=== PATIENT | female | born 1955 | race Caucasian/White ===

== ENCOUNTER 2020-07-28 10:47 | Inpatient (IN) | payer OTHER ==
[~2020-07-28] VITALS: Ht 160 cm; Wt 84.8 kg
[2020-07-28 10:50] VITALS: BP 153/73
--- NOTE | 2020-07-28 11:21 | NUR ---
REVIEWED TRIAGE NOTE. PT IS A POOR HISTORIAN THEREFORE HARD FOR THIS RN TO OBTAIN MUCH PMH. PT UNSURE OF HOW LONG HER SPINAL CORD STIMULATOR HAS BEEN IN PLACE. PT STATES SHE THINKS PAIN GOT WORSE YESTERDAY. PT NOTES PAIN TO LUMBAR REGION WORSE ON RIGHT SIDE. PT DENIES NUMBNESS OR TINGLING. PT DOES NOTE SOMETIMES THE PAIN GOES INTO HER BUTTOCK AND DOWN HER LEGS. PT DENIES LOSS OF BOWEL OR BLADDER CONTROL. PT DENIES FEVER. PT STATES SHE HAS FELT SOME "DRAINAGE" THIS RN NOTED TWO SCARS ON LUMABR REGION THAT ARE WNL AND HEALED WELL. NO DRAINAGE NOTED. PT BACK TO ED11 VIA WHEELCHAIR PT NEEDING ASSIST TO GET UP AND GET INTO BED. PT STATES SHE DOES NOT NORMALLY USE ANY ASSISTIVE DEVICES. PT HAS NOTED WEAKNESS TO BLE BUT LEFT APPEARS WORSE THAN RIGHT ALTHOUGH PAIN IS WORSE ON THE RIGHT SIDE. PT SENSATION AND PULSES ARE INTACT AND WNL. PT SKIN PWD, VSS ON RA, PT SKIN PWD, PT IS A&OX4, GCS 15, CALL LIGHT WITHIN REACH AND ENCOURAGED TO USE
[2020-07-28 11:26] LABS: ABSOLUTE NEUTROPHILS 15.6 thou/uL (1.4-8.2); BASOPHILS 0.5 % (0.0-2.0); HEMATOCRIT 35.4 % (37.0-47.0); HEMOGLOBIN 11.9 gm/dL (12.0-15.0); LYMPHOCYTES 9.1 % (24.0-44.0); MCH 27.5 pg (26.0-34.0); MCHC 33.8 g/dL (28.0-37.0); MCV 81.4 fL (80.0-100.0); MONOCYTES 7.3 % (1.0-8.0); PLATELET COUNT 404 thou/uL (150-400); POLYS 83.1 % (36.0-66.0); RBC 4.34 mil/uL (4.20-5.00); RDW 15.2 % (10.5-14.5); WBC 18.7 thou/uL (4.0-11.0)
[2020-07-28 11:37] LABS: CALCIUM 9.1 mg/dL (8.5-10.1); POTASSIUM 3.6 mmol/L (3.5-5.1)
[2020-07-28 11:43] LABS: ALBUMIN 3.5 g/dL (3.4-5.0); TOTAL BILIRUBIN 0.7 mg/dL (0.2-1.0); TOTAL PROTEIN 8.3 g/dL (6.4-8.2)
--- NOTE | 2020-07-28 12:26 | NUR ---
PT GOING FOR MRI AT THIS TIME WITH DIRECTOR [employer], PT STABLE FOR TRANSPORT, PT REMAINS AT BASELINE
--- NOTE | 2020-07-28 12:56 | NUR ---
PT SISTER AND BROTHER IN-[place] CONTACT INFORMATION ERICA BRADY [phone] SISTER [phone]
[2020-07-28 14:12] LABS: URINE BILIRUBIN NEGATIVE (Negative); URINE BLOOD TRACE (Negative); URINE CLARITY CLEAR; URINE COLOR YELLOW; URINE GLUCOSE-RANDOM* NEGATIVE (Negative); URINE KETONES NEGATIVE (Negative); URINE LEUKOCYTES-REFLEX NEGATIVE (Negative); URINE NITRITE-REFLEX NEGATIVE (Negative); URINE PROTEIN (DIPSTICK) TRACE (Negative); URINE SPECIFIC GRAVITY 1.015 (1.005-1.035)
[2020-07-28 15:30] VITALS: BP 115/72
--- NOTE | 2020-07-28 19:11 | NUR ---
PATIENT ADMITED UNIT FROM OR AT 1805. A/O X4. DROWSY BUT AROUSBLE. TEMP 101.1 WILL KEEP MONITOR.
[2020-07-28 20:55] VITALS: BP 184/110
[2020-07-29] VITALS (7 sets, daily range): BP systolic 143–188; BP diastolic 93–110
[2020-07-29 04:19] LABS: HEMATOCRIT 31.6 % (37.0-47.0); HEMOGLOBIN 10.3 gm/dL (12.0-15.0); MCH 26.9 pg (26.0-34.0); MCHC 32.8 g/dL (28.0-37.0); MCV 82.3 fL (80.0-100.0); RBC 3.84 mil/uL (4.20-5.00); RDW 15.4 % (10.5-14.5); WBC 20.1 thou/uL (4.0-11.0)
[2020-07-29 04:28] LABS: PLATELET COUNT 317 thou/uL (150-400)
[2020-07-29 04:49] LABS: ALBUMIN 2.6 g/dL (3.4-5.0); CALCIUM 8.3 mg/dL (8.5-10.1); CREATININE 0.8 mg/dL (0.6-1.0); MAGNESIUM 1.5 mg/dL (1.8-2.4); POTASSIUM 3.3 mmol/L (3.5-5.1); TOTAL BILIRUBIN 0.8 mg/dL (0.2-1.0); TOTAL PROTEIN 6.7 g/dL (6.4-8.2)
[2020-07-29 05:58] LABS: ABSOLUTE NEUTROPHILS 18.3 thou/uL (1.4-8.2)
--- NOTE | 2020-07-29 06:00 | NUR ---
Patient making slow progress towards outcome goals. Afebrile. Bloos cultures growing grampositived cocci, reported to . Patient on already has Vancomycin and Zosyn ordered. More alert, calls out appropriately for bed christiansen needs. Complaining of headache, relieved with Tylenol. Rhythm Sinus.
--- NOTE | 2020-07-29 14:59 | HC ---
[facility] [place] [address] CONSULTATION Name: ERICK ACOSTA Room #: 355- ADM IN M.R.#: [id number] Admission: 07/28/20 Attend Phys: Andre Gilmore MD Discharge: Date of : 55 Report #: [id number] THIS REPORT FOR: cc: FAM - Family physician unknown FAM - Family physician unknown Kwame Sullivan MD ~ DOC #: [id number] Kwame Sullivan MD DATE OF SERVICE: 07/28/2020 INFECTIOUS DISEASE CONSULTATION REASON FOR CONSULTATION: I am asked to evaluate concerning spinal stimulator infection. HISTORY OF PRESENT ILLNESS: The patient is a 65-year-old with degenerative arthritis and chronic back pain. Approximately 1 month ago on 06/30/2020, she had a spinal stimulator placed by Dr. Wenceslao Huber. She reported some relief of her back pain with radicular features into both buttock regions. Over the last 3 days, she has had increased pain. No definite fever, chills or sweats. Pain, she states, is uncontrollable, unable to sleep, much worse when she lies on her back. She has had minimal drainage from her back incision. She has had some redness to the region. No change in bowel or bladder habits. REVIEW OF SYSTEMS: She has had no cardiopulmonary, GI or issues. She has had no weakness in her lower extremities. Main issue is just pain with movement. ALLERGIES: CEPHALEXIN, SULFA, TYLENOL, BACLOFEN, CODEINE, CYCLOBENZAPRINE, DULOXETINE, HYDROCODONE, DEMEROL, MEDROL, PREGABALIN, PROPOXYPHENE, VIOXX. MEDICATIONS: As noted on her MAR, with no antibiotics prior to coming into the hospital. Subsequently, she has been placed on vancomycin and Zosyn. PAST MEDICAL HISTORY: Degenerative arthritis, chronic back pain. FAMILY HISTORY: No report of tuberculosis. SOCIAL HISTORY: Lives with her . No report of tobacco or alcohol use. PHYSICAL EXAMINATION: VITAL SIGNS: Currently afebrile and hemodynamically stable. GENERAL: She was alert and cooperative. She was in significant amount of discomfort when she tried to move in bed. SKIN: Without rash or decubitus except for what will be described on her back examination. No palpable adenopathy. [address] [address] CONSULTATION Name: ERICK ACOSTA Room #: 355-P [facility] IN M.R.#: [id number] Admission: 07/28/20 Attend Phys: Andre Gilmore MD Discharge: Date of : 55 Report #: [id number] HEENT: Eyes without scleral icterus. Mouth without mucositis. NECK: Supple. LUNGS: Clear to auscultation. HEART: Regular, without murmur, gallop or rub. ABDOMEN: Mildly distended, had some tenderness in the lower abdomen without mass or hepatosplenomegaly. She had positive bowel sounds. GENITAL AND RECTAL: Examination not performed. BACK: With a right flank incision unremarkable with no erythema or drainage and the pocket was without fluid. Her back incision had erythema from the upper portion of the incision and a small amount of dehiscence superficially of the incision, most cephalad. There is no definite fluctuance or drainage able to be expressed. NEUROLOGIC: Strength in her lower extremities along with sensation to touch and deep tendon reflexes were within normal limits bilaterally. PSYCHIATRIC: Mood was without anxiety or depression. LABORATORY DATA: Reviewed with a hemoglobin of 11.9, WBC 18.7. ESR 53, CRP 115, creatinine 1. Liver function test normal. Chest x-ray clear. Urinalysis is unremarkable. MRI scan showed evidence of a L1 through L4 stenosis and at T3 through C7 syrinx. No abscess was evident. Discussed with Dr. Huber postoperatively where the prosthesis has been removed. There was no definite abscess seen. Cultures were obtained. IMPRESSION: 1. Suspected lumbar spine stimulator surgical site infection. Await cultures. 2. Chronic pain, low back 3. Degenerative arthritis. RECOMMENDATIONS: We will continue broad antibiotic coverage pending culture results. Follow serial laboratory studies including CBC and her inflammatory markers. We will also follow her abdominal examination. Case was discussed with nursing staff at the bedside, operative staff and Dr. Huber. Kwame Sullivan MD DJG/WAZ <ELECTRONICALLY SIGNED> By: Kwame Sullivan MD 07/29/20 1459 [id number] Kwame Sullivan MD /nt
[2020-07-29 18:22] LABS: CALCIUM 9.3 mg/dL (8.5-10.1); CREATININE 0.9 mg/dL (0.6-1.0)
[2020-07-29 18:23] LABS: POTASSIUM 4.1 mmol/L (3.5-5.1)
--- NOTE | 2020-07-29 19:07 | NUR ---
ASSUMED PATIENT CARE AT 0700. A/O X4. PATIENT TURN TO LETHARGIC AFTER 2PM. BUT AROUSBLE. WILL HAVE CT HEAD. UP TO BATHROOM WITH WALKER. VSS. RA 97%. WILL KEEP MONITOR.
--- NOTE | 2020-07-29 21:55 | NUR ---
PT ALERT AND ORIENTED 2. MILDLY CONFUSED. FOLLOWS COMMANDS. PT IS LETHARGIC. SHE DOES AWAKEN EASILY.TO TAQKE MEDS OR TAKE DRINKS ETC. NOTIFIED PYROTECHNICS PRESS TENDER PRIOR TO CT SCAN OF PT'S BP. ELEVATED. STARTED LISINOPRIL ORDERED. MORPHINE GIVEN FOR C/O CASTANON. CT SCAN DONE OF HEAD. PT STILL C/O CASTANON. PT REPOSITIONED IN BED. NO S/S BLEEDING NOTED AT INCISIONAL SITE ON BACK. BED DOWN CALL LIGHT IN REACH. BED ALARM IS ON.
[2020-07-29] MEDS ORDERED: DILTIAZEM 24HR120 M1 PO (22:57)
[2020-07-29] MEDS ORDERED: ACYCLOVIR 400400 MG PO (22:57)
[2020-07-29] MEDS ORDERED: LISINOPRIL2.5 MG PO (22:58)
[2020-07-29] MEDS ORDERED: ROSUVASTATIN CA10 MG PO (22:58)
[2020-07-29] MEDS ORDERED: METFORMIN HCL500 M1 PO (23:00)
[2020-07-29] MEDS ORDERED: TRAMADOL 50 MG50 MG PO (23:55)
[2020-07-30] MEDS ORDERED: MELOXICAM15 MG PO
[2020-07-30] MEDS ORDERED: SINGULAIR 10 MG10 MG PO (00:16)
[2020-07-30] MEDS ORDERED: PAROXETINE HCL40 MG PO (00:38)
[2020-07-30] MEDS ORDERED: PROTONIX40 M2 PO (00:41)
[2020-07-30 00:58] VITALS: BP 153/99
[2020-07-30 02:53] VITALS: BP 107/66
--- NOTE | 2020-07-30 04:14 | NUR ---
PT ALERT AND ORIENTED X4 THIS AM. OPENS EYES SPONTANEOUSLY. MORE ALERT THIS AM. LESS LETHARGIC AND SLEEPY. AWAKENS EASILY.8.8 THIS AM. BP BETTER SR WITH PACS ON MONITOR IN 70-80S. 97% ON 4LNC. DENIED CASTANON OR BACK PAIN THIS AM. DRESSING TO BACK REMAINS CLEAN DRY AND IBNTACT. NO S/S DISTRESS.
[2020-07-30 05:41] LABS: ABSOLUTE NEUTROPHILS 10.3 thou/uL (1.4-8.2); BASOPHILS 0.6 % (0.0-2.0); EOSINOPHILS 0.1 % (0.0-3.0); HEMOGLOBIN 10.7 gm/dL (12.0-15.0); MCH 27.2 pg (26.0-34.0); MCHC 32.5 g/dL (28.0-37.0); MCV 83.6 fL (80.0-100.0); MONOCYTES 9.2 % (1.0-8.0); PLATELET COUNT 297 thou/uL (150-400); POLYS 77.1 % (36.0-66.0); RBC 3.95 mil/uL (4.20-5.00); WBC 13.4 thou/uL (4.0-11.0)
[2020-07-30 07:14] VITALS: BP 116/75
[2020-07-30 11:12] VITALS: BP 159/89
--- NOTE | 2020-07-30 14:55 | EKG ---
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
[2020-07-30 14:58] VITALS: BP 136/86
[2020-07-30 19:16] VITALS: BP 110/74
--- NOTE | 2020-07-30 22:44 | NUR ---
PT PROGRESSING TOWARDS D/C GOALS. AWAKE AND ALERT X4. PERRLA. VSS. C/O CASTANON PAIN. MEDICATED WITH 4 MG MORPHINE IV. DRESSING TO BACK REMAINS CLEAN DRY AND INTACT.PT RESTING QUIETLY PRESENTLY. NO S/S DISTRESS. BED DOWN . CALL LIGHT IN REACH. BED ALARM IS ON. MIRALAX AND STOOL SOFTENER GIVEN TO ASSIST WITH BM. WILL CONTINUE TO MONITOR PT FOR CHANGES.
[2020-07-31 03:37] VITALS: BP 117/78
--- NOTE | 2020-07-31 05:15 | NUR ---
PT PROGRESSING TOWARDS D/C GOALS. VSS AFEBRILE THIS AM. UNLABORED ON 2LNC.C/O CASTANON MEDICATED WITH TORADOL THIS AM PT VOIDING CLEAR YELLOW URINE PER BEDPAN OR BATHROOM. NO BLEEDING NOTED AT SURGICAL WOUND SITE. NO S/S DISTRESS.
[2020-07-31 05:52] LABS: ABSOLUTE NEUTROPHILS 4.8 thou/uL (1.4-8.2); HEMATOCRIT 29.2 % (37.0-47.0); HEMOGLOBIN 9.6 gm/dL (12.0-15.0); LYMPHOCYTES 23.1 % (24.0-44.0); MCHC 32.9 g/dL (28.0-37.0); MCV 82.1 fL (80.0-100.0); MONOCYTES 9.8 % (1.0-8.0); PLATELET COUNT 291 thou/uL (150-400); POLYS 63.1 % (36.0-66.0); RBC 3.55 mil/uL (4.20-5.00); RDW 14.8 % (10.5-14.5); WBC 7.6 thou/uL (4.0-11.0)
[2020-07-31 06:02] LABS: CALCIUM 8.3 mg/dL (8.5-10.1); CREATININE 0.8 mg/dL (0.6-1.0); MAGNESIUM 1.8 mg/dL (1.8-2.4); POTASSIUM 3.2 mmol/L (3.5-5.1)
[2020-07-31 07:44] VITALS: BP 113/74
--- NOTE | 2020-07-31 10:51 | NUR ---
CM S/W PT WHO INDICATED SHE LIVES HOME WITH SPOUSE. PT IS INDEPENDENT W/ADLS. PT HAS A WALKER AND CANE THAT SHE SELDOM USES. PT HAS A HX WITH HH, BUT DOES NOT RECALL WHICH AGENCY . PT DRIVES A VEHICLE. PT STATED SHE IS INTERESTED IN SNF, A FACILITY IN THE "[facility] AREA." CM TO CONT TO FOLLOW.
[2020-07-31 15:32] VITALS: BP 128/76
[2020-07-31 20:00] VITALS: BP 163/98
[2020-08-01 04:30] VITALS: BP 141/84
[2020-08-01 07:35] VITALS: BP 146/76
--- NOTE | 2020-08-01 07:56 | NUR ---
Pt. drowsy at beginning of shift then once awake she answered orientation questions.Medicated for pain with some relief. Tolerating room air well with no respiratory distress. No c/o nausea this shift. Ambulated to bathroom with assist x3 during the night. IV on back of right arm infiltrated at beginning of shift. New IV on left AC placed. Bed alarm on for safety , she called appropriately to ask for assistance to bathroom. She has been afebrile. Back dressing intact.
--- NOTE | 2020-08-01 10:46 | NUR ---
CONSULT FOR SHAKIRA Taveras WAS COMPLETED BY THIS CERAMIC ARTIST AND WAS PLACED IN THE PATIENT'S CHART.
[2020-08-01 15:11] VITALS: BP 160/85
--- NOTE | 2020-08-01 15:14 | NUR ---
BETTY reviewed chart and spoke with nursing and attending physician. Pt remains on IV abx. SW met with pt at bedside to discuss discharge plan-post acute placement. Pt is agreeable. SW provided pt with list of SNFs close to her home in [place], [place]. Pt states she will discuss with her sister, Lien. BETTY is following to assist as needed with discharge planning.
--- NOTE | 2020-08-01 18:54 | NUR ---
CARE ASSUME THIS AM, ALERT AND ORIENTED X4 BUT VERY DROWSY YET AROUSABLE. PT STATED HER HEADACHE AND HIP PAIN MUJCH BETTER TODAY. GAVE PT TORADOL IS EVERNING FOR HEADCHE. DENIES NEEDING ANY OTHER PAIN MED. FENTANLY PATCH CONTINUE TO BE ON THE UPPER RIGHT ARM. UP WITH 1 ASSIST TO BATHROOM. FALL PRECAUTIONS IN PLACE.
[2020-08-01 19:10] VITALS: BP 118/70
[2020-08-02 03:57] VITALS: BP 122/87
--- NOTE | 2020-08-02 04:28 | NUR ---
PT HAS BEEN RESTING TONIGHT. SHE HAS NOT ASKED FOR MEDICATION FOR PAIN RELIEF. TALKING ON PHONE AT SHIFT CHANGE THEN, SLEEPING THROUG THE NIGHT. BSC NEEDED. CAREPLAN REVIEWED.
[2020-08-02 07:47] VITALS: BP 122/79
[2020-08-02 15:35] VITALS: BP 108/77
--- NOTE | 2020-08-02 17:11 | NUR ---
clayton spk with pt re snf preference. pt stated she and sister are still deciding and her sister will call janessa arnold.
--- NOTE | 2020-08-02 18:37 | NUR ---
1530 PT SISTER, RONAL CALLED AND UPDATED ABOUT PT CARE. SHE STATED SHE JUST GOT OFF THE PHONE WITH THIS SISTER AND SHE SAID PT SOUNFDED CONFUSE AND DROWSY. WANTED TO KNOW IF FENTANYL PATCH COULD BE D/C. DR. WISE MADE AWARE GAVE ORDERS TO D/C FENTANYL PATCH AND IV MORPHINE. FENTANYL PATCH REMOVED AND WASTED WITH BRIAN TORRES
[2020-08-02 19:33] VITALS: BP 112/82
[2020-08-03 03:32] VITALS: BP 100/66
--- NOTE | 2020-08-03 06:29 | NUR ---
Up in the chair till about 2200. Ambulated to bathroom with assist then back to bed. She slept well during the night. Did not request for pain med. Bed alarm on for safety. Afebrile. Making some progress towards care plan goals.
[2020-08-03 08:10] VITALS: BP 145/72
[2020-08-03 14:28] LABS: HEMATOCRIT 31.5 % (37.0-47.0); HEMOGLOBIN 10.6 gm/dL (12.0-15.0); MCHC 33.6 g/dL (28.0-37.0); MCV 80.3 fL (80.0-100.0); RBC 3.92 mil/uL (4.20-5.00); RDW 14.6 % (10.5-14.5); WBC 11.5 thou/uL (4.0-11.0)
[2020-08-03 15:07] LABS: CALCIUM 8.5 mg/dL (8.5-10.1); CREATININE 2.9 mg/dL (0.6-1.0); MAGNESIUM 1.7 mg/dL (1.8-2.4); POTASSIUM 3.5 mmol/L (3.5-5.1)
--- NOTE | 2020-08-03 15:22 | NUR ---
BETTY reviewed chart and spoke with nursing and attending physician. Pt remains on IV abx. Recommendation made for pt to go to SNF upon discharge. BETTY spoke with pt's sister, Lien, via phone to discuss options. Lien states they would prefer pt to be closer to them in [place]. BETTY provided name of two facilities in [place]: [facility] and [facility]. Pt's sister reviewed two options and notified SW that the preference would be [facility]. BETTY contacted the facility and faxed referral. Message left for the special events coordinator. BETTY met with pt at bedside to provide update. Pt is aware and agreeable with discharge plan. BETTY spoke with pt's sister, Lien, to follow up and provide update. BETTY is following to assist as needed with discharge planning.
[2020-08-03 15:31] VITALS: BP 115/70
--- NOTE | 2020-08-03 19:33 | NUR ---
RN ASSUMED PT'S CARE AT 0700AM, PT IS A&OX2 ( PERSON AND PLACE), PT IS CONFUSED AT TIME, PT IS CONTINUING IV ABX, PT'S VS ARE STABLE, PT GETS UP TO BATH ROOM WITH ASSIST , PT DENIES PAIN AT DAY SHIFT.
[2020-08-03 19:50] VITALS: BP 123/86
--- NOTE | 2020-08-04 03:26 | NUR ---
Pt. sitting up on bed talking to her sister at . She is more alert and awake and remembers being drowsy from pain med. She verbalized headache ,left hip and back pain are mild. She requested to take prn pain at med with good relief. She slept well during the night. Ambulated with assist to bathroom to void. She also verbalized she finally had bms x2 yesterday. She has been afebrile. No c/o nausea or vomiting. Bed alarm on for safety. She calls appropriately to ask for assistance. Tolerating room air well. Dressing intact on her back. Making progress towards care plan goals.
[2020-08-04 04:00] VITALS: BP 130/78
[2020-08-04 05:50] LABS: CALCIUM 8.3 mg/dL (8.5-10.1); CREATININE 3.5 mg/dL (0.6-1.0)
[2020-08-04 05:51] LABS: POTASSIUM 2.8 mmol/L (3.5-5.1)
[2020-08-04 07:18] VITALS: BP 133/70
--- NOTE | 2020-08-04 09:41 | NUR ---
ORDER FOR A PICC FOR THIS PT PLACED WITH VAT, PT HAS CREAT OF 3.5 AND IS CLIMBING. PT NEEDS FOR LT ABX IN SNF, PLACED ORDER FOR IR TICC AND RN ADVISED
[2020-08-04 10:59] LABS: APTT 25.4 Seconds (24.5-32.8); INR 0.98; PROTIME 10.7 Seconds (10.5-12.1)
--- NOTE | 2020-08-04 11:02 | NUR ---
UPON EXPLAINING THE TICC LINE PROCEDURE TO THE PT SHE SEEMED VERY CONFUSED AND APPREHENSIVE TO PROCEED. PT REQUESTED THAT THIS NURSE DISCUSS PROCEDURE WITH HER SISTER-NATALIYA AND OBTAIN CONSENT FROM HER. MESSAGE LEFT WITH PT'S SISTER INFORMING HER THAT WE NEED CONSENT FOR A PROCEDURE AND CV [facility]'S CONTACT NUMBER. FLOOR NURSE NOTIFIED.
--- NOTE | 2020-08-04 11:48 | NUR ---
Nutrition: Recommend adding daily MVI.
[2020-08-04 12:54] LABS: URINE BILIRUBIN NEGATIVE (Negative); URINE BLOOD NEGATIVE (Negative); URINE CLARITY CLEAR; URINE COLOR YELLOW; URINE GLUCOSE-RANDOM* NEGATIVE (Negative); URINE KETONES NEGATIVE (Negative); URINE LEUKOCYTES-REFLEX NEGATIVE (Negative); URINE NITRITE-REFLEX NEGATIVE (Negative); URINE PROTEIN (DIPSTICK) NEGATIVE (Negative); URINE SPECIFIC GRAVITY <= 1.005 (1.005-1.035); URINE UROBILINOGEN 0.2 E.U./dl (0.2-1.0)
[2020-08-04 13:01] LABS: PROT/CREAT RATIO 0.2; URINE CREATININE-RANDOM* 33.1 mg/dL; URINE PROTEIN-RANDOM* 6.1 mg/dL (<11.9)
[2020-08-04 13:50] VITALS: BP 118/64
--- NOTE | 2020-08-04 14:48 | NUR ---
BETTY reviewed chart and spoke with nursing and attending physician. Pt to have renal ultrasound today. Pt to have TICC line placed for IV abx. BETTY spoke with Akilah, wellness program coordinator at [facility], who states they are able to accept, but they ran pt's insurance and found out she has a [facility] Medicare Advantage plan and not traditional Medicare. They are out of network with her insurance plan. BETTY notified UR RN and Director of Case Mgmt. Info shared with registration and verified by UR tech that pt does have a [facility] plan. BETTY spoke with pt's sister, Lien, via phone, to provide update. Notified Lien that [facility] is not in-network. Pt's son, Mychal and [id number], Braden should be in pt's room. BETTY provided in-network SNF list to Braden to give to Lien for review. No weekend discharge planned. Will need insurance auth for SNF placement. Pt and family are all aware. BETTY updated attending physician. BETTY is following to assist as needed with discharge planning.
[2020-08-04 15:00] VITALS: BP 120/66
[2020-08-04 15:19] VITALS: BP 134/69
--- NOTE | 2020-08-04 17:58 | NUR ---
RN ASSUMED PT'S CARE AT 0700AM, PT IS A&OX2 ( PERSON AND PLACE), PT IS CONFUSED AT TIME, PT HAS NEW R SC CENTRAL LINE FOR LT IV ABX, RN HAS REPORTED PT'S ABNORMAL LAB RESULTS, RENAL DR HAS CONSULT, NEW ORDER RECEIVED, PT'S EATING AND DRINKING HAVE IMPROVED BY RN AND FAMILY ENCOURAGE PT. PT 'S VS ARE STABLE BY THIS TIME, PT IS CONTTINUING NS @126ML/HR, PT DENIES PAIN AND SOB AT THIS TIME.
[2020-08-04 19:44] VITALS: BP 110/47
[2020-08-05 02:51] LABS: HEMATOCRIT 28.3 % (37.0-47.0); HEMOGLOBIN 9.4 gm/dL (12.0-15.0); MCH 26.8 pg (26.0-34.0); MCHC 33.2 g/dL (28.0-37.0); MCV 80.6 fL (80.0-100.0); RBC 3.51 mil/uL (4.20-5.00); RDW 14.7 % (10.5-14.5); WBC 13.1 thou/uL (4.0-11.0)
[2020-08-05 02:56] LABS: CALCIUM 8.2 mg/dL (8.5-10.1); CREATININE 3.9 mg/dL (0.6-1.0); MAGNESIUM 2.1 mg/dL (1.8-2.4); POTASSIUM 3.6 mmol/L (3.5-5.1)
[2020-08-05 03:31] VITALS: BP 115/69
--- NOTE | 2020-08-05 05:40 | NUR ---
Pt. slept well during the night. Denies being in pain and did not require prn pain med. No nausea or vomiting.Tolerating room air well with no respiratory distress. Voided per commode. She has been afebrile. Dressing on back intact. Critical [facility] called to ASTON Bernal. Making some progress towards care plan goals.
[2020-08-05 07:23] VITALS: BP 147/82
--- NOTE | 2020-08-05 15:10 | NUR ---
PT CARE ASSUMED THIS AM, PT ALERT AND ORIENTED X4, DENIES CHEST PAIN, NAUSEA AND VOMITTING. PT STATES SHE STILL HAS HIP PAIN BUT TOLERABLE. UP TO BATHROM WITH [address]UTIONS IN PL[address]. WILL CONTINUE T MONITOR.
[2020-08-05 16:01] VITALS: BP 137/78
[2020-08-05 19:31] VITALS: BP 151/75
--- NOTE | 2020-08-05 22:18 | NUR ---
PT ALERT AND ORIENTED X4 WITH PERIODS OF MILD CONFUSION. VSS AFEBRILE. LCTA AND UNLABORED ON RA. MEDICATED FOR C/O OF LEFT HIP PAIN WITH 1 TRAMADOL. IV DRESSING CHANGED TO RIGHT CHEST DUE TO DRIED BLOODY DRAINAGE NOTED. BOTH PORTS ASPIRATED AND WORKING APPROPRIATELY. LEONARDO CARE DONE. WOUND DRESSING CHANGED TO BACK STERI STRIPS CLEAN DRY AND INTACT. NO S/S DISTRESS PRESENTLY.
[2020-08-06] VITALS (12 sets, daily range): BP systolic 139–191; BP diastolic 70–118
[2020-08-06 05:40] LABS: HEMATOCRIT 26.6 % (37.0-47.0); HEMOGLOBIN 8.8 gm/dL (12.0-15.0); MCH 26.8 pg (26.0-34.0); MCHC 33.2 g/dL (28.0-37.0); MCV 80.8 fL (80.0-100.0); RBC 3.29 mil/uL (4.20-5.00); RDW 16.1 % (10.5-14.5); WBC 11.1 thou/uL (4.0-11.0)
--- NOTE | 2020-08-06 05:56 | NUR ---
PT PROGRESSING TOWARDS D/C GOALS. VSS AFEBRILE. PT SLEPT WELL AFTER TRAMADOL GIVEN FOR LEFT HIP PAIN. DRESSING TO BACK REMAINS DRY AND INTACT. NO S/S DISTRESS.
[2020-08-06 06:21] LABS: CALCIUM 8.5 mg/dL (8.5-10.1); CREATININE 4.4 mg/dL (0.6-1.0); MAGNESIUM 2.1 mg/dL (1.8-2.4); POTASSIUM 3.6 mmol/L (3.5-5.1)
--- NOTE | 2020-08-06 07:14 | NUR ---
NOTIFIED BUSINESS COORDINATOR OF CRITICAL VANC RANDOM LEVEL 52. LEFT MESSAGE FOR DR HERBERT HUBBARD ON ANSWERING MACHINE REGARDING CRITICAL LEVEL 52.
--- NOTE | 2020-08-06 17:15 | NUR ---
RN ASSUMED PT'S CARE AT 0700AM, PT IS A&OX 3 ( PERSON, PLACE AND TIME), PT IS CONTINUING IV FLUID NS @ 126ML/HR, AND MONITOR LAB RESULTS, PT'S VS ARE STABLE, PT GETS UP TO BSC AND CHAIR WITH ASSIST, PT DENIES PAIN AND SOB BY THIS TIME, BUT PT FELL TIRED , PT IS IN CHAIR FOR DINNER NOW.
--- NOTE | 2020-08-06 20:32 | NUR ---
Pt alert and oriented x4. BP elevated. See vs. NOTIFIED EXECUTIVE OFFICE MANAGER ENAMEL APPLIER . HYDRALAZINE 10 IV GIVEN . WILL CONTINUE TO REASSESS IF IT WILL GO DOWN. BED DOWN CALL LIGHT IN REACH.WOUND CARE DONE TO BACK. STERI STRIPS INTACT. NO S/S DISRESS
--- NOTE | 2020-08-06 21:10 | NUR ---
BP STIL ELEVATED AFTER HYDRALAZINE. NOTIFIED SUPPRESSION CREW LEADER. SHE WILL ORDER MORE MEDS.
[2020-08-07] VITALS (8 sets, daily range): BP systolic 153–181; BP diastolic 78–95
[2020-08-07 04:46] LABS: HEMATOCRIT 27.7 % (37.0-47.0); HEMOGLOBIN 9.5 gm/dL (12.0-15.0); MCH 27.7 pg (26.0-34.0); MCHC 34.4 g/dL (28.0-37.0); MCV 80.7 fL (80.0-100.0); RBC 3.43 mil/uL (4.20-5.00); WBC 10.6 thou/uL (4.0-11.0)
[2020-08-07 05:08] LABS: ALBUMIN 2.4 g/dL (3.4-5.0); CALCIUM 8.3 mg/dL (8.5-10.1); CREATININE 4.5 mg/dL (0.6-1.0); PHOSPHORUS 4.6 mg/dL (2.5-4.9); POTASSIUM 3.5 mmol/L (3.5-5.1)
--- NOTE | 2020-08-07 05:26 | NUR ---
PT ALERT AND ORIENTED X4 WITH PERIODS OF MILD CONFUSION. BP MODERATELY ELEVATED TONIGHT. METOPROLOL AND HYDRALAZINE IV GIVEN. DRESSING TO BACK REMAINS DRY AND INTACT. STERI STRIPS INTACT. HEADACHE HAS RESOLVED THIS AM. DENIED PAIN THIS AM. SATS 99-100% ON RA. WILL CONTINUE TO ADDRESS BP NEEDED.
[2020-08-08 03:46] VITALS: BP 148/90
[2020-08-08 04:42] LABS: HEMATOCRIT 29.1 % (37.0-47.0); HEMOGLOBIN 9.7 gm/dL (12.0-15.0); MCH 27.4 pg (26.0-34.0); MCHC 33.5 g/dL (28.0-37.0); MCV 81.8 fL (80.0-100.0); RBC 3.55 mil/uL (4.20-5.00); RDW 16.5 % (10.5-14.5); WBC 12.1 thou/uL (4.0-11.0)
[2020-08-08 05:03] LABS: ALBUMIN 2.5 g/dL (3.4-5.0); CALCIUM 8.3 mg/dL (8.5-10.1); CREATININE 4.6 mg/dL (0.6-1.0); PHOSPHORUS 5.6 mg/dL (2.6-4.7); POTASSIUM 3.8 mmol/L (3.5-5.1)
--- NOTE | 2020-08-08 13:15 | NUR ---
BETTY reviewed chart and spoke with nursing and attending physician. Pt is slowly progressing towards goals for discharge. Pt is off IV abx at this time. BETTY spoke with pt's sister/DPOA, Lien, via phone to provide update and discuss discharge plan. Pt's sister requests referral to be sent to [facility] if they accept pt's insurance. BETTY faxed updated face sheet to [facility] and left message for Lea in admissions. Awaiting call back at this time. BETTY is following to assist as needed with discharge planning. [facility]--
[2020-08-08 15:12] VITALS: BP 146/79
[2020-08-08 20:30] VITALS: BP 135/76
[2020-08-09 04:34] VITALS: BP 137/73
[2020-08-09 06:16] LABS: ALBUMIN 2.3 g/dL (3.4-5.0); CALCIUM 8.1 mg/dL (8.5-10.1); CREATININE 4.8 mg/dL (0.6-1.0); POTASSIUM 3.5 mmol/L (3.5-5.1)
[2020-08-09 08:05] VITALS: BP 139/73
--- NOTE | 2020-08-09 13:58 | NUR ---
SW reviewed chart and spoke with nursing and attending physician. Pt is slowly progressing towards goals for discharge. SW faxed clinical/therapy updates to the [facility] at [facility]. Will need insurance authorization for SNF. BETTY left voice message for Lea at [facility]. BETTY met with pt at bedside to provide update and discuss discharge plan. Pt is aware and in agreement with plan. SW explained need for insurance authorization. Pt verbalized understanding. BETTY is following to assist as needed with discharge planning.
[2020-08-09 15:13] VITALS: BP 151/76
--- NOTE | 2020-08-09 17:00 | NUR ---
PT ALERT AND ORIENTED TIMES FOUR. VSS. SR ON TELE. PT DENIES PAIN/SOA.PT TOLERATES MEDS AND MEALS. PT UP WITH ASSIST OF ONE. PT SLOWLY PROGRESSING TOWRADS POC GOALS.
[2020-08-09 18:40] VITALS: BP 158/87
[2020-08-09 20:09] VITALS: BP 169/93
[2020-08-10 01:00] VITALS: BP 148/87
--- NOTE | 2020-08-10 03:56 | NUR ---
Assumed pt care at 1900. A/OX4,VSS. Denies pain on assessment. Up with AX1 GB/RW to the bathroom. Continent of B&B, passing flatus. SR on telemetry. Resting quietly w/o any distress noted. Fall precautions in place,will continue to monitor pt.
[2020-08-10 06:38] LABS: ALBUMIN 2.5 g/dL (3.4-5.0); CALCIUM 8.5 mg/dL (8.5-10.1); CREATININE 4.9 mg/dL (0.6-1.0); POTASSIUM 3.4 mmol/L (3.5-5.1)
[2020-08-10 07:19] VITALS: BP 151/71
--- NOTE | 2020-08-10 13:54 | NUR ---
ASSUMED PT CARE THIS AM. PT A&OX4, ABLE TO MAKE NEEDS KNOWN. PATIENT REMAINS CONTINENT, AND IS AMBULATORY TO THE BATHROOM WITH ASSIST. PATIENT HAS TRACE EDEMA NOTED TO BLE AND TO THE RIGHT WRIST AREA. PATIENT IS ON ROOM AIR. REMAINS IN INSOLATION FOR MRSA. FALL PRECAUTIONS ARE IN PLACE, CALL LIGHT WITHIN REACH. PATIENT REPORTS PAIN OF A 2/10 THIS AM, RESOLVED WITH MEDICATION GIVEN PER EMAR. PATIENT IS REPORTING NO NUMBNESS OR TINGLING.
--- NOTE | 2020-08-10 15:14 | NUR ---
CARE TEAM INDICATED THAT PT IS PROGRESSING TOWARD GOAL OF DISCHARGE. CARE TEAM ARE MONITORING PT'S CREATININ. CARE TEAM INDICATED THAT THEY ANTICIPATE PT BEING ON IV ABX UPON DC BUT IV VANC WAS DC'D TODAY AND SHE ISN'T ON ANY IV ABX CURRENTLY. CM CALLED KESHA AT THE SWING B[facility] IN [facility] AND LEFT . CM FAXED CLINICAL UPDATE. CM FOLLOWING REGARDING DC PLANNING. CARE TEAM INDICATED PT MAY BE DC READY BEGINING OF NEXT WEEK. PT REFUSED PT THIS DAY.
[2020-08-10 16:55] VITALS: BP 132/85
[2020-08-10 20:00] VITALS: BP 170/93
--- NOTE | 2020-08-11 01:48 | NUR ---
assumed care approx 1900 evening 08/10. pt alert and oriented x4, appropriate and cooperative. pt stated she needed to have a bm. pt given suppository and reported she did have small bm. pt now back to sleep, has not called out of complained further regarding bm. dressing to back c/d/i. bed alarm on and call light in reach. will continue to monitor.
[2020-08-11 06:00] LABS: ALBUMIN 2.6 g/dL (3.4-5.0); CALCIUM 8.4 mg/dL (8.5-10.1); CREATININE 4.4 mg/dL (0.6-1.0); PHOSPHORUS 6.2 mg/dL (2.5-4.9); POTASSIUM 3.3 mmol/L (3.5-5.1)
[2020-08-11 08:31] VITALS: BP 141/71
[2020-08-11 16:00] VITALS: BP 141/71
--- NOTE | 2020-08-11 16:11 | NUR ---
ID SAW PT AND INDICATED THAT PT DIDN'T NEED HOME INFUSION SERVICES UPON DC. CM HAD PRICED OUT IV VANC FOR PT AND HAD FOUND HH PROVIDER. PT WANTS TO USE [facility]. THEY HAVE ACCEPTED FOR SERVICES AND WILL DO A SOC FRIDAY. DR. HUBBARD INDICATED THAT HE WANTS CBC, CMP, AND RANDOM VAN LEVEL DRAWN WEDNESDAY 08/16 AND WANTS PT TO FOLLOW UP IN HIS OP OFFICE ON FRIDAY. CM PROVIDED THAT INFO AND PHONE NUMBER AND ADDRESS IN PT'S DC PAPERWORK. CM CONVEYED LABS TO THE HH WELL. PT'S PCP/SHOE TREER IS CLYDE DOUGHERTY IN [place]. PT HAS ALL NEEDED DME. PT IS TO DC TO HER SON TREVA'S HOUSE AT [address] [place] [address]. PT'S SISTER RONAL TO PROVIDE TRANSPORT HOME TOMORROW. ORDERS WILL NEED TO BE FAXED TO [facility] AT F: .
--- NOTE | 2020-08-11 16:14 | NUR ---
Patient alert and orinted x4, up with SBA, on room air, tolerating diet, no nausea, denies pain, vitals stable, and afbrile. Call light with in reach. Bed alarm on. Will continue to monitor.
[2020-08-11 21:12] VITALS: BP 133/78
[2020-08-12 06:20] LABS: ALBUMIN 2.5 g/dL (3.4-5.0); CALCIUM 8.4 mg/dL (8.5-10.1); PHOSPHORUS 5.7 mg/dL (2.5-4.9); POTASSIUM 3.1 mmol/L (3.5-5.1)
--- NOTE | 2020-08-12 07:39 | NUR ---
ASSUMED PT CARE AROUND 1900. A&OX4. VSS. AFEBRILE. PT SLEPT MOST OF THE NIGHT. RESPIRATIONS EVEN AND UNLABORED. UP W/ SBA TO BTR. STEADY GAIT. BACK DRESSING C/D/I. TYLENOL GIVEN ONCE FOR LOW BACK PAIN. PROGRESSING TOWARD POC GOALS. REPORT GIVEN TO ONCOMING NURSE.
[2020-08-12 07:51] VITALS: BP 126/64
[2020-08-12 09:29] VITALS: BP 126/64
--- NOTE | 2020-08-12 10:11 | NUR ---
Dr. Brooke voiced that the patient will discharge with the IV on the right chest. no prescripition.
--- NOTE | 2020-08-12 10:13 | NUR ---
Tele monitor device back to the nursing station.
== END 2020-08-12 12:24 | disposition home health service (06) | DRG 862 ==
LOC: ER 10:47 → EROBS 12:52 → 3W 12:52 → TBACV 17:02 → 3W 17:17 → 4W 08-09 18:37
PROVIDERS: Hospitalist; Internal Medicine; Internal Medicine Nephrology; Nurse Practitioner Family; Specialist; ADMIT Internal Medicine; ATTEND Internal Medicine
DX: T81.41XA Infection following a procedure, superficial incisional surgical site, initial encounter (principal); A41.02 Sepsis due to Methicillin resistant Staphylococcus aureus; G92 Toxic encephalopathy; N17.9 Acute kidney failure, unspecified; E87.1 Hypo-osmolality and hyponatremia; G97.1 Other reaction to spinal and lumbar puncture; E66.01 Morbid (severe) obesity due to excess calories; M54.41 Lumbago with sciatica, right side; M54.42 Lumbago with sciatica, left side; M19.90 Unspecified osteoarthritis, unspecified site; M35.00 Sjogren syndrome, unspecified; G89.4 Chronic pain syndrome; E87.6 Hypokalemia; M51.36 Other intervertebral disc degeneration, lumbar region; T36.8X5A Adverse effect of other systemic antibiotics, initial encounter; M47.816 Spondylosis without myelopathy or radiculopathy, lumbar region; N18.9 Chronic kidney disease, unspecified; Y83.8 Other surgical procedures as the cause of abnormal reaction of the patient, or of later complication, without mention of misadventure at the time of the procedure; Z20.822 Contact with and (suspected) exposure to COVID-19; Z68.33 Body mass index [BMI] 33.0-33.9, adult; Z88.1 Allergy status to other antibiotic agents; Z88.2 Allergy status to sulfonamides; Z88.8 Allergy status to other drugs, medicaments and biological substances; Y92.89 Other specified places as the place of occurrence of the external cause
CPT/HCPCS: 10045; 10879; 50101; 50386; 50417; 56524; 56526; 62110; 62850; 70005

== ENCOUNTER → 2020-08-21 | Outpatient (CLI) | payer OTHER ==
[~2020-08-21] MED LIST: ACYCLOVIR 400400 MG PO; DILTIAZEM 24HR120 M1 PO; LISINOPRIL2.5 MG PO; MELOXICAM15 MG PO; METFORMIN HCL500 M1 PO; PAROXETINE HCL40 MG PO; PROTONIX40 M2 PO; ROSUVASTATIN CA10 MG PO; SINGULAIR 10 MG10 MG PO; TRAMADOL 50 MG50 MG PO
--- NOTE | 2020-08-21 12:12 | NUR ---
PT TOLERATED REMOVAL OF TICC LINE WELL. REMOVED BY TECH WITHOUT COMPLICATIONS. SITE COVERED WITH BANDAID. CLEAN DRY INTACT. PT VERBALIZES UNDERSTANDING OF KEEPING SITE CLEAN AND DRY AND TO WATCH FOR SIGNS OF INFECTION. PT ESCORTED TO EXIT.
== END | disposition home or self-care (01) ==
LOC: SPEC 10:56
PROVIDERS: ATTEND Specialist
DX: Z45.2 Encounter for adjustment and management of vascular access device (principal); M54.5 Low back pain; G89.29 Other chronic pain